=== PATIENT | male | born 2000 | race Caucasian/White ===

== ENCOUNTER 2021-06-23 14:58 | Emergency (ER) | payer OTHER ==
[~2021-06-23] VITALS: Ht 165.1 cm; Wt 61.2 kg
[2021-06-23 16:19] VITALS: BP 129/75
== END 2021-06-23 16:19 | disposition home or self-care (01) ==
LOC: ER 14:58
DX: S81.012A Laceration without foreign body, left knee, initial encounter (principal); W50.1XXA Accidental kick by another person, initial encounter; Y93.66 Activity, soccer; Y92.89 Other specified places as the place of occurrence of the external cause; Y99.8 Other external cause status